=== PATIENT | female | born 1940 | race Caucasian/White ===

== ENCOUNTER 2016-09-04 06:13 | Day surgery (SDC) | payer MEDICARE, BC ==
[~2016-09-04] VITALS: Ht 167.6 cm; Wt 65.8 kg
[~2016-09-04 06:13] MED LIST: CHOLESTYRAMIN4 G/PK1 PO; CRESTOR10 MG PO; FLECAINIDE ACET50 MG PO; LEVOXYL75 MCG PO; ZESTRIL10 MG PO
[2016-09-04 07:10] VITALS: BP 133/70; Ht 167.6 cm; Wt 65.8 kg
[2016-09-04 07:55] LABS: BASOPHILS 0.2 % (0.0-2.0); HEMATOCRIT 37.6 % (36.0-48.0); HEMOGLOBIN 12.3 g/dL (12-16); IMMATURE GRANULOCYTES 0.2 % (0-5); MCH 31.2 pg (26.0-34.0); MCHC 32.7 g/dL (31.0-37.0); MCV 95.4 fL (80.0-100.0); MEAN PLATELET VOLUME 10.4 fL (7.4-10.4); MONOCYTES 7.5 % (2-11); NEUTROPHILS 55.1 % (40-80); PLATELET COUNT 202 10x3/uL (130-400); RBC 3.94 10x6/uL (4.00-5.40); RDW 13.2 % (11.5-14.5); WBC 5.9 10x3/uL (4.8-10.8)
[2016-09-04 08:16] LABS: ANION GAP 14.2 mmol/L (8-16); CALCIUM 9.8 mg/dL (8.5-10.1); CARBON DIOXIDE 25.5 mmol/L (21.0-32.0); CREATININE - SERUM 1.2 mg/dL (0.6-1.3); POTASSIUM - SERUM 3.7 mmol/L (3.5-5.1)
[2016-09-04 08:19] LABS: APTT 25.5 SECONDS (22.8-39.4); INR 0.98 (0.85-1.17); PROTIME 12.8 SECONDS (11.6-15.0)
--- NOTE | 2016-09-04 12:28 | NUR ---
1200-PT DOING WELL, FAMILY AT BEDSIDE WILL CONTINUE TO MONITOR 1225-VSS NO N/V FULL LIQUID TRAY GIVEN
--- NOTE | 2016-10-10 10:17 | OP ---
PATIENT NAME: YOLANDA GERBER MEDICAL RECORD: [id number] :38 LOCATION:D.OPS ADMISSION DATE: SURGEON: TERESA SILVA MD DATE OF OPERATION: 09/04/2016 PREOPERATIVE DIAGNOSES: History of colon resection for colon cancer with regrowth of the polypoid tissue during the patient's colonoscopy on 08/17/2015. This polypoid tissue was read out as a hyperplastic polyp. POSTOPERATIVE DIAGNOSES: 1. History of colon resection for colon cancer with regrowth of the polypoid tissue during the patient's colonoscopy on 08/17/2015. This polypoid tissue was read out as a hyperplastic polyp. 2. No evidence of regrowth of the polypoid tissue at the anastomosis. 3. The patient did have an 8-mm sessile polyp in the rectum. PROCEDURES: 1. Total colonoscopy to the cecum. 2. Cold endoscopic biopsies of the anastomosis and ablation of the anastomotic tissue with the argon plasma head turbine operator, to ablate any polypoid tissue and also for hemostasis. 3. Hot biopsy forceps polypectomy times 1. SURGEON: Teresa Silva MD TARGET MAN: None. BLOOD LOSS: Minimal. ANESTHESIA: General. COMPLICATIONS: None. The risks, possible complications and alternatives to procedure were explained to the patient. She elects to proceed. The discussion specifically included, but was not limited to, bleeding requiring emergency reoperation, infection, endoscopic perforation and the possible need for resection. ENDOSCOPIC COURSE: The patient was conveyed to the operating room electively on 09/04/2014. General anesthesia was induced by the anesthesia staff. The patient was placed in the Dennis position. A digital rectal examination was performed. A colonoscope was inserted through the anus. It was easily advanced the anastomosis. I performed a circumferential cold endoscopic biopsies of the anastomosis. I noted no evidence of polypoid tissue. No evidence of neoplastic tissue. No evidence of perforation. I then ablated the biopsy sites and the entire anastomotic scars with the argon plasma head turbine operator with the right colon setting in the forced mode. I slowly withdrew the endoscope. I noted a sessile polyp, which was removed in its entirety utilizing hot biopsy forceps polypectomy technique. I then withdrew into the rectum. A retroflexed view in the rectum revealed 2 anal papilla, which were cauterized with the hot biopsy forceps, but these were not biopsied. I then unretroflexed the scope and removed it under direct vision. I will see the patient in my office in 2-3 weeks. If there has been no regrowth OPERATIVE REPORT [id number] YOLANDA GERBER of the polypoid tissue, then my plan will be to return the patient back to Dr. Martin for surveillance colonoscopies in the future. TRANSINT:[id number] Voice Confirmation ID: [id number] DOCUMENT ID: [id number] TERESA SILVA MD at 1017 CC: ANOOP FAY MD, WINDY MARTIN MD and DEEPA CASTILLO [phone] DICTATION DATE: 09/04/16 1123 MANAGER TRANSPORTATION PLANNING: 09/04/16 1140 [facility] 09/04/[address] [id number]
--- NOTE | 2016-10-10 10:17 | HP ---
PATIENT: YOLANDA GERBER MEDICAL RECORD: [id number] ACCOUNT: [id number] LOCATION:[facility] : 38 ADMISSION DATE: 09/04/16 HISTORY AND PHYSICAL EXAMINATION HISTORY OF PRESENT ILLNESS: The patient has undergone a prior colon resection for colon cancer. During her colonoscopy on 08/17/2015, she was found to have some regrowth of the polypoid tissue within an anastomosis at 35 cm. This was biopsied and was found to be a sessile hyperplastic polyp. She is undergoing another colonoscopy with biopsies of the anastomosis and an ablation of any residual or recurrent polypoid tissue. The risks, possible complications and alternatives to procedure were explained to the patient. She elects to proceed. PAST MEDICAL HISTORY AND PAST SURGICAL HISTORY: Colon cancer with resection, adrenalectomy through an open procedure, cataract surgery, history of heart rhythm problems, hypertension, hypothyroidism, on replacement therapy, hyperlipidemia. ALLERGIES: No known drug allergies. HOME MEDICINES: She is on thyroid supplementation, Crestor, flecainide as well as cholestyramine. SOCIAL HISTORY: She is a nonsmoker. REVIEW OF SYSTEMS: Negative for CVA or seizures. Negative for neurologic problems, diabetes, hepatitis or renal disease. The review of systems is negative other than as is described above. PHYSICAL EXAMINATION: GENERAL: The patient does not appear acutely ill. She does not appear chronically ill. The entire physical examination was performed in the presence of a female nurse. HEAD: External ears appear normal. EYES: Extraocular movements are intact. NECK: Trachea is midline. CHEST: No intercostal retractions. PULMONARY: Nonlabored. No stridor. ABDOMEN: Nontender. EXTREMITIES: No peripheral cyanosis. INTEGUMENT: No rash, no ulcerations. PSYCHIATRIC: Normal affect. IMPRESSION: History of intestinal resection of her colon cancer with some regrowth of the polypoid tissue during her last colonoscopy. PLAN: Colonoscopy, biopsies of anastomosis, polypectomy if there is any residual or recurrent polypoid tissue. TRANSINT:[id number] Voice Confirmation ID: [id number] DOCUMENT ID: [id number] HISTORY AND PHYSICAL [id number] YOLANDA GERBERTERESA HARO MD at 1017 CC: ANOOP FAY MD, WINDY MAYER MD and DEEPA CASTILLO [phone] DICTATION DATE: 09/04/16 1119 INSURANCE SPECIALIST: 09/04/16 1137 [facility] 09/04/16 [place] [id number] [place] [id number]
== END 2016-09-04 13:05 | disposition home or self-care (01) ==
LOC: D.OPS 06:13 → D.PAN 08:45 → D.OPS 09:15 → D.PAN 09:15 → D.OPS 13:05
PROVIDERS: Anesthesiology
DX: K62.1 Rectal polyp (principal); Z90.49 Acquired absence of other specified parts of digestive tract; Z85.038 Personal history of other malignant neoplasm of large intestine; I10 Essential (primary) hypertension; E03.9 Hypothyroidism, unspecified; E78.5 Hyperlipidemia, unspecified; Z79.899 Other long term (current) drug therapy